=== PATIENT | male | born 1965 | race Two or more races ===

== ENCOUNTER → 2024-08-05 | Outpatient (REF) | payer BC ==
[~2024-08-05] MED LIST: ACET-897 PO; B-12100021 PO; BACTDSTA PO; DULO1CAP6 PO; FLOM0.4C39 PO; LANTINJ4 SC; LEVO1TAB39 PO; LEVO25TA5 PO; LEXA1TAB2 PO; LISI20TA35 PO; RISATAB3 PO; SFHIBU200 PO; VERA180C PO
[2024-08-05 18:00] LABS: APPEARANCE, URINE CLOUDY (CLEAR); BACTERIA, URINE AUTO 1+ (NEGATIVE); BILIRUBIN, URINE AUTO NEGATIVE (NEGATIVE); BLOOD, URINE BLOOD 2+ (NEGATIVE); COLOR, URINE YELLOW (YELLOW); GLUCOSE, URINE (UA) AUTO NEGATIVE (NEGATIVE); KETONE, URINE AUTO NEGATIVE (NEGATIVE); LEUKOCYTE ESTERASE, URINE AUTO 3+ (NEGATIVE); MUCUS, URINE SMALL (NEGATIVE); NITRITE, URINE AUTO POSITIVE (NEGATIVE); PROTEIN, URINE AUTO 1+ mg/dL (NEGATIVE); RBC, URINE AUTO 113 /HPF (0-3); SPECIFIC GRAVITY URINE AUTO 1.013 (1.002-1.035); SQUAMOUS EPITHELIAL CELL UR AU 0 /HPF (0-6); UROBILINOGEN, URINE AUTO 0.2 mg/dL (0.0-2.0); WBC, URINE AUTO TNTC /HPF (0-3)
== END ==
LOC: M SMT 16:56
PROVIDERS: ATTEND Urology
DX: R33.9 Retention of urine, unspecified (principal); Q55.64 Hidden penis

== ENCOUNTER → 2024-09-12 | Outpatient (REF) | payer BC, MEDICAID ==
[2024-09-12 13:44] LABS: APPEARANCE, URINE CLOUDY (CLEAR); BACTERIA, URINE AUTO NEGATIVE (NEGATIVE); BILIRUBIN, URINE AUTO NEGATIVE (NEGATIVE); BLOOD, URINE BLOOD 2+ (NEGATIVE); COLOR, URINE YELLOW (YELLOW); GLUCOSE, URINE (UA) AUTO NEGATIVE (NEGATIVE); KETONE, URINE AUTO NEGATIVE (NEGATIVE); LEUKOCYTE ESTERASE, URINE AUTO 3+ (NEGATIVE); NITRITE, URINE AUTO NEGATIVE (NEGATIVE); PROTEIN, URINE AUTO 1+ mg/dL (NEGATIVE); RBC, URINE AUTO 109 /HPF (0-3); SPECIFIC GRAVITY URINE AUTO 1.014 (1.002-1.035); SQUAMOUS EPITHELIAL CELL UR AU 0 /HPF (0-6); UROBILINOGEN, URINE AUTO 0.2 mg/dL (0.0-2.0); WBC, URINE AUTO 173 /HPF (0-3)
== END ==
LOC: M SMT 13:18
PROVIDERS: ATTEND Urology
DX: R39.9 Unspecified symptoms and signs involving the genitourinary system (principal)

== ENCOUNTER → 2024-10-08 | Outpatient (REF) | payer MEDICAID, OTHER ==
[2024-10-08 16:40] LABS: APPEARANCE, URINE MANUAL TURBID (CLEAR); COLOR, URINE MANUAL RED (YELLOW)
[2024-10-08 16:41] LABS: BILIRUBIN, URINE MANUAL NEGATIVE (NEGATIVE); BLOOD URINE MANUAL POSITIVE (NEGATIVE); GLUCOSE, URINE (UA) MANUAL NEGATIVE (NEGATIVE); KETONE, URINE MANUAL NEGATIVE (NEGATIVE); LEUKOCYTE ESTERASE, URINE MAN POSITIVE (NEGATIVE); NITRITE, URINE MANUAL NEGATIVE (NEGATIVE); PROTEIN, URINE MANUAL 3+ mg/dL (NEGATIVE); UROBILINOGEN, URINE MANUAL NORMAL (NORMAL)
[2024-10-08 16:42] LABS: BACTERIA, URINE SMALL AMOUNT; HYALINE CAST, URINE NONE SEEN /lpf (0-1); RBC, URINE 40-50 /hpf (0-3); SQUAMOUS EPITHELIAL CELL URINE NONE SEEN /hpf (SMALL AMT)
== END ==
LOC: M SMT 14:51
PROVIDERS: ATTEND Physician Assistant
DX: R39.9 Unspecified symptoms and signs involving the genitourinary system (principal)

== ENCOUNTER → 2024-10-28 | Outpatient (CLI) | payer OTHER ==
[~2024-10-28] MED LIST changes: -FLOM0.4C39 PO; +TAMS-18 PO
[2024-10-28 13:11] LABS: BASO # 0.1 10^3/uL (0.0-0.2); BASO % 0.9 % (0.0-1.0); EOS # 0.3 10^3/uL (0.0-0.5); EOS % 2.3 % (0.0-3.0); HEMOGLOBIN 12.4 g/dl (13.5-17.5); LYMPH # 1.9 10^3/uL (1.5-5.0); LYMPH % 16.3 % (24.0-44.0); MEAN CORPUSCULAR HEMOGLOBIN 24.8 pg (27.0-33.0); MEAN CORPUSCULAR HGB CONC 31.8 g/dl (32.0-36.5); MEAN CORPUSCULAR VOLUME 77.8 fl (80.0-96.0); MONO # 0.6 10^3/uL (0.0-0.8); MONO % 5.5 % (2.0-8.0); NEUTROPHILS # 8.4 10^3/uL (1.5-8.5); PLATELET COUNT, AUTOMATED 232 10^3/uL (150-450); RED BLOOD COUNT 5.01 10^6/uL (4.30-6.10); WHITE BLOOD COUNT 11.5 10^3/uL (4.0-10.0)
[2024-10-28 13:57] LABS: CREATININE, URINE 68.3 MG/DL
[2024-10-28 13:59] LABS: MAU/CREAT RATIO 184.4 MCG/MG (0.0-30.0)
[2024-10-28 14:01] LABS: PSA SCREENING 0.45 NG/ML (< 4.00); VITAMIN B12 LEVEL 1094 PG/ML (211-911)
[2024-10-28 14:02] LABS: FERRITIN 43.2 NG/ML (10.5-307.3)
[2024-10-28 14:05] LABS: FREE T4 1.05 NG/DL (0.89-1.76)
[2024-10-28 14:06] LABS: IRON (FE) 54 UG/DL (65-175)
[2024-10-28 14:10] LABS: ALBUMIN 3.4 G/DL (3.2-5.2); ALKALINE PHOSPHATASE 150 U/L (40-129); ALT/SGPT 37 U/L (7.0-40); AST/SGOT 25 U/L (<34); BILIRUBIN,TOTAL 0.3 MG/DL (0.3-1.2); BLOOD UREA NITROGEN 27 MG/DL (9-23); CALCIUM LEVEL 9.4 MG/DL (8.5-10.1); CARBON DIOXIDE LEVEL 28 MMOL/L (20-31); CHLORIDE LEVEL 101 MMOL/L (98-107); CHOLESTEROL LEVEL 164 MG/DL (<200); CHOLESTEROL RISK RATIO 4.29 (<5); CREATININE FOR GFR 0.95 MG/DL (0.70-1.30); GLOMERULAR FILTRATION RATE > 90.0 (>56); GLUCOSE, FASTING 72 MG/DL (60-100); HDL CHOLESTEROL 38.2 MG/DL (>40); NON-HDL-C 125.8 MG/DL; POTASSIUM SERUM 4.6 MMOL/L (3.5-5.1); SODIUM LEVEL 141 MMOL/L (136-145); TOTAL PROTEIN 7.2 G/DL (5.7-8.2); TRIGLYCERIDES LEVEL 154 MG/DL (<150)
[2024-10-28 14:40] LABS: HEMOGLOBIN A1c 8.6 % (4.0-6.0)
== END ==
LOC: M PLALAB 09:21
PROVIDERS: ATTEND Physician Assistant Medical
DX: Z98.84 Bariatric surgery status (principal); E11.42 Type 2 diabetes mellitus with diabetic polyneuropathy; F51.01 Primary insomnia; E03.9 Hypothyroidism, unspecified; Z12.5 Encounter for screening for malignant neoplasm of prostate

== ENCOUNTER 2025-02-20 12:12 | Inpatient (IN) | payer MEDICAID, OTHER ==
[~2025-02-20] VITALS: Ht 165.1 cm; Wt 133.3 kg
[2025-02-20] MEDS ORDERED: FLUT15.820 (12:26)
[2025-02-20] MEDS ORDERED: ZOLP10TA2 PO (12:26)
[2025-02-20] MEDS ORDERED: ESCITALOPRAM (12:26)
[2025-02-20 12:58] LABS: BASO # 0.0 10^3/uL (0.0-0.2); BASO % 0.2 % (0.0-1.0); EOS # 0.0 10^3/uL (0.0-0.5); EOS % 0.1 % (0.0-3.0); LYMPH # 0.5 10^3/uL (1.5-5.0); LYMPH % 3.7 % (24.0-44.0); MONO # 0.5 10^3/uL (0.0-0.8); MONO % 3.6 % (2.0-8.0); NEUTROPHILS # 12.3 10^3/uL (1.5-8.5); NEUTROPHILS % 91.1 % (36.0-66.0); PLATELET COUNT, AUTOMATED 152 10^3/uL (150-450)
[2025-02-20] MEDS: [UNRECOGNIZED DRUG - OTHER] IV ONE (13:12)
[2025-02-20] MEDS: PIPERACILLIN/TAZOBACTAM SOD 4.5 GM in DEXTROSE 5% (D5W) ADV/MINI-BAG 50 ML IV ONE (13:12)
[2025-02-20] MEDS: NS 0.9% IV ONE (13:12)
[2025-02-20 13:23] LABS: CK-MB VALUE MASS 6.2 NG/ML (<3.6)
[2025-02-20 13:26] LABS: ALT/SGPT 30.0 U/L (7.0-40); AST/SGOT 44.0 U/L (<34); CALCIUM LEVEL 8.8 MG/DL (8.5-10.1); CARBON DIOXIDE LEVEL 18.0 MMOL/L (20-31); CHLORIDE LEVEL 90.0 MMOL/L (98-107); CREATININE FOR GFR 2.85 MG/DL (0.70-1.30); GLOMERULAR FILTRATION RATE 24.8 (>56); POTASSIUM SERUM 5.0 MMOL/L (3.5-5.1); SODIUM LEVEL 126.0 MMOL/L (136-145)
[2025-02-20 13:30] LABS: CPK CREATINE PHOSPHOKINASE 421.0 U/L (46-171); MB/CK RELATIVE INDEX 1.47 (< OR =4)
[2025-02-20] MEDS: IBUPROFEN 400 MG TAB PO ONE (13:33)
[2025-02-20 13:58] LABS: KETONE, URINE AUTO RFX NEGATIVE (NEGATIVE); MUCUS, URINE RFX LARGE (NEGATIVE); NITRITE, URINE AUTO RFX NEGATIVE (NEGATIVE); RBC, URINE AUTO RFX 91 /HPF (0-3); SQUAM EPITHELIAL CELL UR AURFX 0 /HPF (0-6)
[2025-02-20 14:00] LABS: LEUKOCYTE ESTERASE UR AUTO RFX 3+ (NEGATIVE); WBC, URINE AUTO RFX TNTC /HPF (0-3)
[2025-02-20] MEDS ORDERED: HOME MED LIST COMPLETE! XX SCH (14:15)
[2025-02-20] MEDS ORDERED: VITA100093 PO (14:15)
[2025-02-20] MEDS ORDERED: DEXTROSE 50% 50 ML SYRINGE IV PRN (17:55)
[2025-02-20] MEDS ORDERED: GLUCAGON INJ 1 MG VIAL SC PRN (17:55)
[2025-02-20] MEDS ORDERED: GLUCOSE 4 GM CHEW PO PRN (17:55)
[2025-02-20] MEDS: NS (Normal Saline) 0.9% 1,000 ML IV SCH (18:19)
[2025-02-20] MEDS: INSULIN LISPRO (NovoLOG) PER UNIT SC SCH ×2 (18:55→21:47)
[2025-02-20 19:03] LABS: CALCIUM LEVEL 7.5 MG/DL (8.5-10.1); CARBON DIOXIDE LEVEL 19.0 MMOL/L (20-31); CHLORIDE LEVEL 97.0 MMOL/L (98-107); CREATININE FOR GFR 2.5 MG/DL (0.70-1.30); GLOMERULAR FILTRATION RATE 29.1 (>56); POTASSIUM SERUM 4.9 MMOL/L (3.5-5.1); SODIUM LEVEL 128.0 MMOL/L (136-145)
[2025-02-20 21:20] VITALS: BP 97/52; TEMP 97.8; O2SAT 96
[2025-02-20] MEDS: HEPARIN SOD 5000 UNITS/ML 1 ML VIAL/SYRINGE SC SCH (21:47)
[2025-02-20] MEDS: PIPERACILLIN/TAZOBACTAM SOD 4.5 GM in DEXTROSE 5% (D5W) ADV/MINI-BAG 50 ML IV SCH (21:52)
[2025-02-20 23:53] VITALS: BP 97/55; TEMP 97; O2SAT 97
[2025-02-21 01:20] LABS: CALCIUM LEVEL 7.2 MG/DL (8.5-10.1); CARBON DIOXIDE LEVEL 20.0 MMOL/L (20-31); CHLORIDE LEVEL 95.0 MMOL/L (98-107); CREATININE FOR GFR 2.38 MG/DL (0.70-1.30); GLOMERULAR FILTRATION RATE 30.8 (>56); POTASSIUM SERUM 5.1 MMOL/L (3.5-5.1); SODIUM LEVEL 125.0 MMOL/L (136-145)
[2025-02-21 04:11] VITALS: BP 108/55; TEMP 96.9; O2SAT 97
[2025-02-21 05:35] LABS: PLATELET COUNT, AUTOMATED 147 10^3/uL (150-450)
[2025-02-21 06:11] LABS: ALT/SGPT 22.0 U/L (7.0-40); AST/SGOT 53.0 U/L (<34); CALCIUM LEVEL 7.9 MG/DL (8.5-10.1); CARBON DIOXIDE LEVEL 19.0 MMOL/L (20-31); CHLORIDE LEVEL 95.0 MMOL/L (98-107); CREATININE FOR GFR 2.13 MG/DL (0.70-1.30); GLOMERULAR FILTRATION RATE 35.2 (>56); MAGNESIUM LEVEL 2.0 MG/DL (1.8-2.4); POTASSIUM SERUM 4.8 MMOL/L (3.5-5.1); SODIUM LEVEL 125.0 MMOL/L (136-145)
[2025-02-21 06:38] VITALS: BP 111/57; TEMP 97; O2SAT 95
[2025-02-21] MEDS ORDERED: INSULIN LISPRO (NovoLOG) PER UNIT SC SCH (07:30)
[2025-02-21] MEDS: MIRALAX *UNIT DOSE* 17 GM PACKET PO SCH (09:08)
[2025-02-21] MEDS: INSULIN GLARGINE-YFGN 1 UNITS/0.01 ML SC SCH (09:09)
[2025-02-21 13:32] VITALS: BP_SYST 105; BP_SYST 114; BP_DIAS 59; BP_DIAS 63; TEMP 96.9; TEMP 97.2; O2SAT 94; O2SAT 98
[2025-02-21] MEDS: NS (Normal Saline) 0.9% 1,000 ML IV SCH (16:00)
[2025-02-21 16:19] VITALS: BP 107/58; TEMP 97.2; O2SAT 98
[2025-02-21] MEDS: FLUTICASONE PROPIONATE 0.05% NASAL SPRAY 16 GM NARES SCH (16:57)
[2025-02-21 20:14] VITALS: BP 112/58; TEMP 96.9; O2SAT 98
[2025-02-21] MEDS: QUEtiapine FUMARATE 50MG TAB PO PRN (22:01)
[2025-02-21] MEDS: ACETAMINOPHEN 325 MG TAB PO PRN (22:04)
[2025-02-21 23:46] VITALS: BP 118/56; TEMP 97.8; O2SAT 96
[2025-02-22 04:10] VITALS: BP 125/61; TEMP 97.1; O2SAT 96
[2025-02-22 06:08] LABS: BASO # 0.0 10^3/uL (0.0-0.2); BASO % 0.3 % (0.0-1.0); EOS # 0.0 10^3/uL (0.0-0.5); EOS % 0.3 % (0.0-3.0); LYMPH # 1.1 10^3/uL (1.5-5.0); LYMPH % 9.2 % (24.0-44.0); MONO # 0.7 10^3/uL (0.0-0.8); MONO % 5.8 % (2.0-8.0); NEUTROPHILS # 9.5 10^3/uL (1.5-8.5); NEUTROPHILS % 82.9 % (36.0-66.0); PLATELET COUNT, AUTOMATED 153 10^3/uL (150-450)
[2025-02-22 06:26] LABS: CK-MB VALUE MASS 8.5 NG/ML (<3.6)
[2025-02-22 06:29] LABS: CALCIUM LEVEL 8.0 MG/DL (8.5-10.1); CARBON DIOXIDE LEVEL 21.0 MMOL/L (20-31); CHLORIDE LEVEL 103.0 MMOL/L (98-107); CREATININE FOR GFR 1.53 MG/DL (0.70-1.30); GLOMERULAR FILTRATION RATE 52.4 (>56); POTASSIUM SERUM 4.3 MMOL/L (3.5-5.1); SODIUM LEVEL 134.0 MMOL/L (136-145)
[2025-02-22 06:32] LABS: CPK CREATINE PHOSPHOKINASE 758.0 U/L (46-171); MB/CK RELATIVE INDEX 1.12 (< OR =4)
[2025-02-22 07:36] VITALS: BP 111/54; TEMP 96.8; O2SAT 97
[2025-02-22] MEDS: cefTRIAXone SOD 1 GM in DEXTROSE 5% (D5W) ADV/MINI-BAG 50 ML IV SCH (10:05)
[2025-02-22 12:00] VITALS: BP 114/68; TEMP 98; O2SAT 96
[2025-02-22 15:44] VITALS: BP 129/62; TEMP 98; O2SAT 94
[2025-02-22 17:57] LABS: CALCIUM LEVEL 8.0 MG/DL (8.5-10.1); CARBON DIOXIDE LEVEL 23.0 MMOL/L (20-31); CHLORIDE LEVEL 103.0 MMOL/L (98-107); CREATININE FOR GFR 1.42 MG/DL (0.70-1.30); GLOMERULAR FILTRATION RATE 57.3 (>56); POTASSIUM SERUM 4.4 MMOL/L (3.5-5.1); SODIUM LEVEL 136.0 MMOL/L (136-145)
[2025-02-22 20:28] VITALS: BP 130/60; TEMP 98.4; O2SAT 98
[2025-02-23] VITALS (7 sets, daily range): BP systolic 117–167; BP diastolic 55–75; TEMP 97.4–98.1; O2SAT 95–99
[2025-02-23 06:16] LABS: BASO # 0.1 10^3/uL (0.0-0.2); BASO % 0.6 % (0.0-1.0); EOS # 0.1 10^3/uL (0.0-0.5); EOS % 1.1 % (0.0-3.0); LYMPH # 1.7 10^3/uL (1.5-5.0); LYMPH % 16.1 % (24.0-44.0); MONO # 0.9 10^3/uL (0.0-0.8); MONO % 8.1 % (2.0-8.0); NEUTROPHILS # 7.3 10^3/uL (1.5-8.5); NEUTROPHILS % 69.2 % (36.0-66.0); PLATELET COUNT, AUTOMATED 194 10^3/uL (150-450)
[2025-02-23 06:41] LABS: CALCIUM LEVEL 8.2 MG/DL (8.5-10.1); CARBON DIOXIDE LEVEL 26.0 MMOL/L (20-31); CHLORIDE LEVEL 104.0 MMOL/L (98-107); CPK CREATINE PHOSPHOKINASE 236.0 U/L (46-171); CREATININE FOR GFR 1.24 MG/DL (0.70-1.30); GLOMERULAR FILTRATION RATE 67.4 (>56); POTASSIUM SERUM 4.4 MMOL/L (3.5-5.1); SODIUM LEVEL 139.0 MMOL/L (136-145)
[2025-02-23] MEDS: ESCITALOPRAM OXALATE 10 MG TABLET PO SCH (11:53)
[2025-02-23] MEDS: amLODIPine 5 MG TAB PO ONE (11:54)
[2025-02-24 04:07] VITALS: BP 167/68; TEMP 97; O2SAT 96
[2025-02-24 05:55] LABS: BASO # 0.1 10^3/uL (0.0-0.2); BASO % 0.5 % (0.0-1.0); EOS # 0.3 10^3/uL (0.0-0.5); EOS % 2.4 % (0.0-3.0); LYMPH # 1.9 10^3/uL (1.5-5.0); LYMPH % 17.0 % (24.0-44.0); MONO # 0.8 10^3/uL (0.0-0.8); MONO % 7.0 % (2.0-8.0); NEUTROPHILS # 7.1 10^3/uL (1.5-8.5); NEUTROPHILS % 65.2 % (36.0-66.0); PLATELET COUNT, AUTOMATED 196 10^3/uL (150-450)
[2025-02-24 06:16] LABS: CALCIUM LEVEL 8.1 MG/DL (8.5-10.1); CARBON DIOXIDE LEVEL 28 MMOL/L (20-31); CHLORIDE LEVEL 107 MMOL/L (98-107); CREATININE FOR GFR 0.98 MG/DL (0.70-1.30); GLOMERULAR FILTRATION RATE 89.4 (>56); POTASSIUM SERUM 4.0 MMOL/L (3.5-5.1); SODIUM LEVEL 142 MMOL/L (136-145)
[2025-02-24 07:48] VITALS: BP 139/66; TEMP 97.2; O2SAT 96
[2025-02-24 08:25] LABS: IRON (FE) 35 UG/DL (65-175); PERCENT SATURATION 14.8 % (19.7-50.0)
[2025-02-24 08:29] LABS: VITAMIN B12 LEVEL > 2000 PG/ML (211-911)
[2025-02-24] MEDS ORDERED: BACT800T5 PO (10:46)
[2025-02-24] MEDS ORDERED: LISI20TA33 PO (10:47)
[2025-02-24] MEDS ORDERED: NORV5TAB PO (10:48)
== END 2025-02-24 12:47 | disposition home health service (06) | DRG 466 ==
LOC: EDBD 12:12 → M ED 12:12 → M ED INP 17:32 → M PCU 21:14
PROVIDERS: ADMIT Student in an Organized Health Care Education/Training Program; ATTEND Student in an Organized Health Care Education/Training Program
DX: T83.518A Infection and inflammatory reaction due to other urinary catheter, initial encounter (principal); R65.20 Severe sepsis without septic shock; N17.9 Acute kidney failure, unspecified; A41.9 Sepsis, unspecified organism; E11.42 Type 2 diabetes mellitus with diabetic polyneuropathy; E66.01 Morbid (severe) obesity due to excess calories; E87.1 Hypo-osmolality and hyponatremia; I10 Essential (primary) hypertension; G47.00 Insomnia, unspecified; E03.9 Hypothyroidism, unspecified; F32.A Depression, unspecified; F41.9 Anxiety disorder, unspecified; B96.20 Unspecified Escherichia coli [E. coli] as the cause of diseases classified elsewhere; N40.0 Benign prostatic hyperplasia without lower urinary tract symptoms; Z98.84 Bariatric surgery status; Z90.49 Acquired absence of other specified parts of digestive tract; E86.0 Dehydration; Z79.4 Long term (current) use of insulin; Z79.899 Other long term (current) drug therapy; N39.0 Urinary tract infection, site not specified

== ENCOUNTER → 2025-03-24 | Outpatient (REF) | payer OTHER, MEDICAID ==
[~2025-03-24] MED LIST changes: +BACT800T5 PO; +ESCITALOPRAM; +FLUT15.820; +LISI20TA33 PO; +NORV5TAB PO; +VITA100093 PO; +ZOLP10TA11 PO
[2025-03-24 14:07] LABS: BASO # 0.1 10^3/uL (0.0-0.2); BASO % 0.7 % (0.0-1.0); EOS # 0.3 10^3/uL (0.0-0.5); EOS % 3.5 % (0.0-3.0); LYMPH # 2.2 10^3/uL (1.5-5.0); LYMPH % 23.0 % (24.0-44.0); MONO # 0.6 10^3/uL (0.0-0.8); MONO % 5.9 % (2.0-8.0); NEUTROPHILS # 6.2 10^3/uL (1.5-8.5); NEUTROPHILS % 65.4 % (36.0-66.0); PLATELET COUNT, AUTOMATED 241 10^3/uL (150-450)
[2025-03-24 14:23] LABS: ESTIMATED AVERAGE GLUCOSE 192.0 MG/DL (60-110)
[2025-03-24 14:33] LABS: ALT/SGPT 13 U/L (7.0-40); AST/SGOT 18 U/L (<34); CALCIUM LEVEL 9.2 MG/DL (8.5-10.1); CARBON DIOXIDE LEVEL 27 MMOL/L (20-31); CHLORIDE LEVEL 104 MMOL/L (98-107); CHOLESTEROL LEVEL 173 MG/DL (<200); CHOLESTEROL RISK RATIO 4.58 (<5); CREATININE FOR GFR 0.97 MG/DL (0.70-1.30); GLOMERULAR FILTRATION RATE > 90.0 (>56); LDL CHOLESTEROL 94.9 MG/DL (<100); NON-HDL-C 135.3 MG/DL; POTASSIUM SERUM 5.8 MMOL/L (3.5-5.1); SODIUM LEVEL 138 MMOL/L (136-145); TRIGLYCERIDES LEVEL 202 MG/DL (<150)
== END ==
LOC: M LAB REF 11:31
PROVIDERS: ATTEND Physician Assistant Medical
DX: E11.42 Type 2 diabetes mellitus with diabetic polyneuropathy (principal); R74.8 Abnormal levels of other serum enzymes; Z98.84 Bariatric surgery status

== ENCOUNTER → 2025-03-27 | Outpatient (CLI) | payer OTHER ==
[2025-03-27 15:31] LABS: CALCIUM LEVEL 8.9 MG/DL (8.5-10.1); CARBON DIOXIDE LEVEL 24 MMOL/L (20-31); CHLORIDE LEVEL 103 MMOL/L (98-107); CREATININE FOR GFR 0.92 MG/DL (0.70-1.30); GLOMERULAR FILTRATION RATE > 90.0 (>56); PHOSPHORUS LEVEL 4.7 MG/DL (2.5-4.9); POTASSIUM SERUM 4.9 MMOL/L (3.5-5.1); PTH INTACT 59.8 PG/ML (18.5-88.0); SODIUM LEVEL 137 MMOL/L (136-145)
[2025-03-27 15:33] LABS: TOTAL 25(OH) VITAMIN D 41.4 NG/ML (20.0-100.0)
== END ==
LOC: M PLALAB 13:49
PROVIDERS: ATTEND Physician Assistant Medical
DX: E87.5 Hyperkalemia (principal)

== ENCOUNTER → 2025-04-24 | Outpatient (REF) | payer MEDICAID, OTHER ==
[2025-04-24 17:39] LABS: APPEARANCE, URINE CLOUDY (CLEAR); BACTERIA, URINE AUTO NEGATIVE (NEGATIVE); BILIRUBIN, URINE AUTO NEGATIVE (NEGATIVE); BLOOD, URINE BLOOD 3+ (NEGATIVE); GLUCOSE, URINE (UA) AUTO NEGATIVE (NEGATIVE); KETONE, URINE AUTO NEGATIVE (NEGATIVE); LEUKOCYTE ESTERASE, URINE AUTO 2+ (NEGATIVE); MUCUS, URINE SMALL (NEGATIVE); NITRITE, URINE AUTO NEGATIVE (NEGATIVE); PROTEIN, URINE AUTO 2+ mg/dL (NEGATIVE); RBC, URINE AUTO TNTC /HPF (0-3); SPECIFIC GRAVITY URINE AUTO 1.024 (1.002-1.035); SQUAMOUS EPITHELIAL CELL UR AU 0 /HPF (0-6); UROBILINOGEN, URINE AUTO 2.0 mg/dL (0.0-2.0); WBC, URINE AUTO TNTC /HPF (0-3)
== END ==
LOC: M SMT 16:48
PROVIDERS: ATTEND Physician Assistant
DX: N39.0 Urinary tract infection, site not specified (principal)

== ENCOUNTER → 2025-05-20 | Outpatient (CLI) | payer OTHER ==
[~2025-05-20] MED LIST changes: -BACTDSTA PO; +SULF-8 PO
== END ==
LOC: M PLAIMG 16:19
PROVIDERS: ATTEND Physician Assistant Medical
DX: M48.061 Spinal stenosis, lumbar region without neurogenic claudication (principal); M50.30 Other cervical disc degeneration, unspecified cervical region; R29.898 Other symptoms and signs involving the musculoskeletal system

== ENCOUNTER → 2025-06-09 | Outpatient (REF) | LOC: M PLAIMG 12:55 | PROVIDERS: ATTEND Internal Medicine ==